=== PATIENT | female | born 1965 | race Two or more races ===

== ENCOUNTER 2019-07-14 13:13 | Emergency (ER) | payer OTHER ==
[2019-07-14] MEDS ORDERED: MORPHINE SULFATE 4 MG/ML SYRINGE IM STA (13:54)
--- NOTE | 2019-07-14 13:59 | ED ---
General Adult HPI - General Chief complaint: Fall Stated complaint: Ankle injury Time Seen by Provider: 07/14/19 13:36 Source: patient Mode of arrival: wheelchair Limitations: no limitations - History of Present Illness Initial comments: Dictation was produced using Verbling dictation software. please excuse any grammatical, word or spelling errors. Chief Complaint: 54-year-old female with right foot pain. History of Present Illness: Patient's 54-year-old female right foot pain. Just prior to this patient was standing on a washer dusting when she lost balance and fell off. Patient states she landed on her feet with stiffened legs.. Ended Endocet she had significant right foot pain. She reports that the pain is severe. Complains of paresthesias to all the toes. Denies any back pain. No hip pain and no knee pain. The ROS documented in this emergency department record has been reviewed and confirmed by me. Those systems with pertinent positive or negative responses have been documented in the HPI. All other systems are other negative and/or noncontributory. PHYSICAL EXAM: General Impression: Alert and oriented x3, acute distress secondary to pain HEENT: Normocephalic atraumatic, extra-ocular movements intact, pupils equal and reactive to light bilaterally, mucous membranes moist. Cardiovascular: Heart regular rate and rhythm, S1&S2 audible, no murmurs, rubs or gallops Chest: Lungs clear to auscultation bilaterally, no rhonchi, no wheeze, no rales Abdomen: Bowel sounds present, abdomen soft, non-tender, non-distended, no organomegaly Musculoskeletal: Pulses present and equal in all extremities, no peripheral edema Right foot: Intact DP and PT pulses, exquisite tenderness to palpation of the entire foot worse in the heel Motor: no focal deficits noted Neurological: CN II-XII grossly intact, no focal motor or sensory deficits noted Skin: Intact with no visualized rashes Psych: Normal affect and mood ED course: 54-year-old feel presents with right foot pain. Vital signs upon arrival shows heart rate of 1:15, rest of vital signs within acceptable limits. X-ray of the calcaneus was obtained showing nondisplaced comminuted calcaneus fracture. Discussed patient case Dr. Self who requests that CT scans be obtained for operative planning and that she be discharged and follow-up with Dr. Keen early next week. Bulky Mcdonough right ankle posterior mold splint was placed to the right lower extremity. CT is ordered. Patient tolerated splint placement. Patient will be discharged. She reports that she has crutches at home. Patient is told to be nonweightbearing to the right lower extremity. - Related Data Home Medications Medication Instructions Recorded Confirmed Albiglutide [Tanzeum] 30 mg SQ MO 04/21/17 04/25/17 Butalb/APAP/Caff 50-325-40Mg 1 tab PO DIRECTED PRN 04/21/17 04/25/17 [Fioricet 50-325-40] Glimepiride [Amaryl] 2 mg PO BID 04/21/17 04/25/17 Meloxicam 7.5 mg PO BID PRN 04/21/17 04/25/17 Oxybutynin Chloride 5 mg PO QAM 04/21/17 04/25/17 Simvastatin [Zocor] 20 mg PO HS 04/21/17 04/25/17 rOPINIRole HCL [Requip] 0.5 mg PO HS 04/21/17 04/25/17 Previous Rx's Medication Instructions Recorded HYDROcodone/APAP 5-325MG [[place] 1 tab PO Q6HR PRN 3 Days #12 tab 07/14/19 5-325] Allergies Allergy/AdvReac Type Severity Reaction Status Date / Time codeine Allergy Severe stopped Verified 04/21/17 15:19 breathing amoxicillin Allergy Swelling/hi Verified 04/21/17 15:19 ves aspirin Allergy Rash/Hives Verified 04/21/17 15:19 clarithromycin [From Biaxin] Allergy Rash/Hives/ Verified 04/21/17 15:19 itching erythromycin base Allergy Swelling/hi Verified 04/21/17 15:19 ves latex Allergy red skin Verified 04/21/17 15:33 and itching Penicillins Allergy Swelling/hi Verified 04/21/17 15:19 ves silk and nylon stitching Allergy skin buck Uncoded 04/21/17 15:34 Review of Systems ROS Statement: Those systems with pertinent positive or pertinent negative responses have been documented in the HPI. ROS Other: All systems not noted in ROS Statement are negative. Past Medical History Past Medical History: Diabetes Mellitus, Hyperlipidemia, Osteoarthritis (OA) Additional Past Medical History / Comment(s): migraines, EKG 'Showed stress"-not sure if CO, frequent vomiting after meals, IBS, frequent urination History of Any Multi-Drug Resistant Organisms: None Reported Past Surgical History: Section, Tonsillectomy Additional Past Surgical History / Comment(s): ganglion cyst removed from rt elbow Past Anesthesia/Blood Transfusion Reactions: Family History of Problems w/ Anesthesia, Motion Sickness Additional Past Anesthesia/Blood Transfusion Reaction / Comment(s): "daughter comes out violent" Past Psychological History: Anxiety, Panic Disorder Smoking Status: Former smoker Past Alcohol Use History: None Reported Past Drug Use History: None Reported - Past Family History Father Family Medical History: Cancer General Exam Limitations: no limitations Course Vital Signs 07/14/19 13:18 Temperature 97.8 F Pulse Rate 115 H Respiratory 20 Rate Blood Pressure 164/86 O2 Sat by Pulse 99 Oximetry Disposition Clinical Impression: Calcaneus fracture Disposition: HOME SELF-CARE Condition: Good Instructions (If sedation given, give patient instructions): Calcaneal Fracture (ED) Additional Instructions: pain prescription sent to preferred pharmacy for order picker Prescriptions: HYDROcodone/APAP 5-325MG [[place] 5-325] 1 tab PO Q6HR PRN 3 Days #12 tab PRN Reason: Severe Pain Is patient prescribed a controlled substance at d/c from ED?: Yes If prescribed controlled substance>3 days was MAPS reviewed?: Prescribed <3 Days Referrals: Montana Keen MD [Medical Doctor] - 1-2 days Time of Disposition: 15:00
--- NOTE | 2019-07-14 14:14 | XR ---
EXAMINATION TYPE: XR ankle complete RT DATE OF EXAM: 07/14/2019 COMPARISON: NONE HISTORY: Pain. Fall. TECHNIQUE: 3 views FINDINGS: There is comminuted fracture of the posterior calcaneus. Fracture line extends to the subta lar joint. There is large plantar and Achilles calcaneal spurring. Ankle mortise is anatomic. IMPRESSION: Nondisplaced comminuted calcaneus fracture.
--- NOTE | 2019-07-14 14:14 | XR ---
EXAMINATION TYPE: XR calcaneus 2V RT DATE OF EXAM: 07/14/2019 COMPARISON: NONE HISTORY: Pain TECHNIQUE: 2 views FINDINGS: There is nondisplaced comminuted calcaneus fracture. There is anatomic subtalar joint. Ther e is moderate plantar and Achilles calcaneal spurring. IMPRESSION: Comminuted calcaneus fracture.
[2019-07-14] MEDS ORDERED: HYDROmorphone 0.5 MG/0.5 ML SYRINGE IVP STA (15:09)
--- NOTE | 2019-07-14 15:17 | CT ---
EXAMINATION TYPE: CT lower extremity RT wo con DATE OF EXAM: 07/14/2019 COMPARISON: None HISTORY: pt fall, injury RT foot CT DLP: 280.6 mGycm Automated exposure control for dose reduction was used. Multiple axial sections were obtained from the distal tibia to the bottom of the foot without contras t. There is comminuted nondisplaced fracture of the posterior calcaneus. Subtalar joint is anatomic. Ank le mortise is anatomic. Fragments are displaced up to 5 mm. Fracture line extends to the subtalar haily nt. There is plantar and Achilles calcaneal spur formation. IMPRESSION: Comminuted fracture of the posterior calcaneus with mild displacement.
[2019-07-14 15:26] VITALS: BP 155/84; PULSE 98; RESP 18; TEMP 98.9
== END 2019-07-14 15:24 | disposition home or self-care (01) ==
LOC: EC 13:13
DX: S92.001A Unspecified fracture of right calcaneus, initial encounter for closed fracture (principal); E11.9 Type 2 diabetes mellitus without complications; E78.5 Hyperlipidemia, unspecified; M19.90 Unspecified osteoarthritis, unspecified site; Z87.891 Personal history of nicotine dependence; Z88.0 Allergy status to penicillin; Z88.1 Allergy status to other antibiotic agents; Z88.5 Allergy status to narcotic agent; Z88.6 Allergy status to analgesic agent; Z91.040 Latex allergy status; Z91.048 Other nonmedicinal substance allergy status; Z79.84 Long term (current) use of oral hypoglycemic drugs; Z79.899 Other long term (current) drug therapy; Z87.448 Personal history of other diseases of urinary system; W17.89XA Other fall from one level to another, initial encounter; Y93.89 Activity, other specified; Y92.009 Unspecified place in unspecified non-institutional (private) residence as the place of occurrence of the external cause
CPT/HCPCS: 73610; 73650; 73700; 99284; 29515; 96374; 96372; J2270; J1170

== ENCOUNTER 2019-07-19 09:09 | Day surgery (SDC) | payer OTHER ==
[2019-07-16 15:36] VITALS: BMI 27.6
[~2019-07-19 09:09] MED LIST: CLINDAMYCIN 900 MG in DEXTROSE 5% IN WATER 50 ML IVPB ONE; LACTATED RINGERS 1,000 ML IV SCH; LIDOCAINE 1% (10MG/ML) FOR IV START INTRADERMA PRN; ONDANSETRON 4 MG/2 ML VIAL IVP ONE; fentaNYL (PF) 50 MCG/ML 2 ML AMP IV PRN
[2019-07-19 11:23] LABS: Glucose,Whole Blood 161 mg/dL (75-99)
[2019-07-19] MEDS ORDERED: MIDAZOLAM 2 MG/2 ML VIAL IV ONE (11:35)
[2019-07-19] MEDS ORDERED: SCOPOLAMINE 1.5MG/72HR PATCH TRANSDERM ONE (11:47)
[2019-07-19] MEDS ORDERED: LIDOCAINE 1% INJ 10MG/ML (20 ML MDV) ONE (13:47)
[2019-07-19] MEDS ORDERED: ROPIVACAINE 5 MG/ML 30 ML VIAL ONE (13:47)
[2019-07-19] MEDS ORDERED: fentaNYL (PF) 50 MCG/ML 2 ML AMP ONE (13:47)
[2019-07-19] MEDS ORDERED: MIDAZOLAM 2 MG/2 ML VIAL ONE (13:47)
[2019-07-19] MEDS ORDERED: PROPOFOL 10 MG/ML 20 ML VIAL IV ONE (13:47)
[2019-07-19] MEDS ORDERED: DEXAMETHASONE SOD PHOSPHATE 4 MG/ML 1 ML VIAL ONE (13:47)
[2019-07-19] MEDS ORDERED: SUCCINYLCHOLINE CHLORIDE 100 MG/5 ML SYR IV ONE (13:47)
[2019-07-19] MEDS ORDERED: LACTATED RINGERS 1,000 ML IV ONE ×2 (14:48→17:42)
--- NOTE | 2019-07-19 14:55 | P.OP ---
Date of Procedure: 07/19/19 Preoperative Diagnosis: 1. Displaced right tongue-type calcaneus fracture 2. Type 2 diabetes Postoperative Diagnosis: Same Procedure(s) Performed: 1. Open reduction internal fixation right calcaneus fracture 2. Application of short leg splint, right leg Anesthesia: yang VAUGHAN Surgeon: Montana Keen Funding Analyst #1: Delfino Aguirre Estimated Blood Loss (ml): 5 IV fluids (ml): 800 Pathology: none sent Condition: stable Disposition: PACU Indications for Procedure: The patient is very pleasant 54 old female with a medical history significant for type 2 diabetes who sustained an isolated injury to her right leg after a fall. She was seen in the emergency department where x-rays and computed tomography scan showed a displaced tongue-type calcaneus fracture. She was referred to my office. A mallet the patient earlier this week to discuss her x- rays. Her x-rays and CT again showed a displaced tongue-type calcaneus fracture. My recommendation was to perform percutaneous fixation to allow early range of motion. We discussed potential risks and competitions of surgery including but not limited to risk of anesthesia, infection, damage to local blood vessels or nerves, delayed wound healing, nonunion, malunion, loss of fixation, symptomatically hardware, posttraumatic arthritis, DVT, PE, other medical complications, and inability to regain preinjury level of function and possibly loss of life or limb. The patient voiced understanding of all these the most common types of complications other less common competitions are possible. Description of Procedure: The patient was identified in preoperative holding and the correct right leg was marked with my initials. I reviewed the consent form with the patient and her daughters. All the questions were answered. The patient was given a block by anesthesia. She was then brought back to the operating room. She was positioned on the or table where general anesthetic and preoperative antibiotics were given. A tourniquet was applied the proximal aspect of the right leg. The patient was then placed in lateral decubitus position with the unaffected left side down and the right side up. She was secured to the table with a beanbag. Egg foam was placed under the down leg over the fibular head to prevent pressure over the common peroneal nerve. A bump of towels was placed under the right leg after the legs been scissored. The right leg was then prepped and draped in the standard sterile fashion. Prior to starting surgery timeout was performed identifying the correct patient, operative extremity, and procedure. The patient's leg was then elevated, examined was made with an Esmarch bandage, the tourniquet was inflated to 250 mm a marker. I began by making a stab incision directly over the posterior tuberosity tongue fragment. A 2.5 mm drill bit was used to create a pilot instructor hole and a 5 mm Schanz pin was placed by hand into the tongue fragment. A gentle plantar flexion force was applied and the fracture anatomically reduced. I then proceeded to place 2 cannulated 5.5 mm partially threaded screws across the fracture both generating excellent compression. A final longitudinal screws placed from the tip of the posterior tuberosity into the anterior process of the calcaneus. Final fluoroscopic images were taken including a lateral view of the heel, and axial view of the heel, and AP view of the foot. The fracture appeared to be reduced and the hardware was all within the calcaneus. The wounds were thoroughly irrigated and closed with 3-0 nylon. Sterile dressing was applied. The patient was then placed in the supine position and a well-padded bulky Joneswith the ankle in neutral. The patient was then awoken from her anesthetic, transferred from the or table to a gurney, and brought to recovery entire procedure well. Delfino Aguirre PA-C was required as a skilled social service assistant for patient positioning, surgical exposure, retraction, placement of hardware, closure of wound, and apposition of splint. Plan: The patient is going to be admitted overnight for pain control, medical consultation for diabetes management, gait training, and discharge planning. She is to remain strictly nonweightbearing on her operative extremity.
[2019-07-19] MEDS ORDERED: HYDROmorphone 0.5 MG/0.5 ML SYRINGE IVP PRN ×2 (15:08)
[2019-07-19] MEDS ORDERED: hydrOXYzine PAMOATE 25 MG CAP PO PRN (15:08)
[2019-07-19] MEDS ORDERED: SENNOSIDES-DOCUSATE SODIUM 1 EACH TAB PO PRN (15:08)
[2019-07-19] MEDS ORDERED: HYDROcodone/APAP 5-325MG 1 EACH TAB PO PRN (15:08)
[2019-07-19] MEDS ORDERED: ONDANSETRON 4 MG/2 ML VIAL IVP PRN (15:08)
--- NOTE | 2019-07-19 15:09 | FL ---
EXAMINATION TYPE: FL guidance operating room, XR calcaneus 2V RT DATE OF EXAM: 07/19/2019 CLINICAL HISTORY: Fluoroscopic documentation during open reduction internal fixation of the right hitesh caneus. TECHNIQUE: Fluoroscopy. COMPARISON: None. FINDINGS: Fluoroscopic guidance was provided during procedure performed by Dr. Keen. A total of 1 minute and 47 seconds of fluoroscopic time was utilized during the procedure and 7 spot images were acquired. IMPRESSION: As Above.
[2019-07-19] MEDS ORDERED: LACTATED RINGERS 1,000 ML IV SCH (15:15)
[2019-07-19 16:25] LABS: Glucose,Whole Blood 203 mg/dL (75-99)
[2019-07-19] MEDS ORDERED: INSULIN ASPART (NovoLOG) 100 UNIT/ML VIAL SQ ONE (17:22)
[2019-07-19 18:44] LABS: Basophils % (A) 0 %; Eosinophils % (A) 0 %; HCT 39.7 % (34.0-46.0); HGB 12.4 gm/dL (11.4-16.0); Lymphocytes # (A) 0.9 k/uL (1.0-4.8); Lymphocytes % (A) 11 %; MCH 27.4 pg (25.0-35.0); MCHC 31.3 g/dL (31.0-37.0); MCV 87.6 fL (80.0-100.0); Mean Platelet Volume 7.4; Monocytes # (A) 0.1 k/uL (0-1.0); Monocytes % (A) 2 %; Neutrophils # (A) 6.6 k/uL (1.3-7.7); Neutrophils % (A) 86 %; Platelet Count 381 k/uL (150-450); RBC 4.53 m/uL (3.80-5.40); WBC 7.7 k/uL (3.8-10.6)
[2019-07-19] MEDS: HYDROmorphone 0.5 MG/0.5 ML SYRINGE IVP PRN (19:18)
[2019-07-19 20:00] LABS: Glucose,Whole Blood 283 mg/dL (75-99)
[2019-07-19] MEDS: INSULIN ASPART (NovoLOG) 100 UNIT/ML VIAL SQ SCH (23:11)
[2019-07-19] MEDS: CLINDAMYCIN 900 MG in DEXTROSE 5% IN WATER 50 ML IVPB SCH ×2 (23:11)
[2019-07-19] MEDS ORDERED: INSULIN DETEMIR (LEVEMIR) 100 UNIT/ML SYR SQ SCH (23:15)
--- NOTE | 2019-07-19 23:16 | P.CONS ---
History of Present Illness - Reason for Consult Consult date: 07/19/19 - History of Present Illness Patient is a 54-year-old female with a PMH of type 2 diabetes mellitus, anxiety, migraine headaches, and restless leg syndrome who was admitted for scheduled open reduction internal fixation of her right calcaneus fracture. The patient had suffered a fall on 07/14/2019 at which time she presented to the ED and was diagnosed with the fracture when the computed tomography scan of her right foot revealed a comminuted fracture of the posterior calcaneus with mild displacement. The patient had a brace put on and was sent home and advised to be nonweightbearing on the right foot and use crutches. The patient underwent the procedure uneventfully earlier today. She reports continued pain, at a 4 out of 10 at the time of interview at the site of the surgery. She otherwise denied any additional complaints and was in good spirits. She denied chest pain, shortness of breath, nausea, vomiting or fever, chills, abdominal pain. Review of Systems Pertinent positives and negatives as discussed in HPI, a complete review of systems was performed and all other systems are negative. Past Medical History Past Medical History: Diabetes Mellitus, Myocardial Infarction (AL), Osteoarthritis (OA) Additional Past Medical History / Comment(s): current fx rt heel in boot, migraines, frequent urination, restless leg, Last Myocardial Infarction Date:: unknown silent History of Any Multi-Drug Resistant Organisms: None Reported Past Surgical History: Section, Tonsillectomy Additional Past Surgical History / Comment(s): ganglion cyst removed from rt elbow Past Anesthesia/Blood Transfusion Reactions: No Reported Reaction Additional Past Anesthesia/Blood Transfusion Reaction / Comm: "daughter comes out violent" Past Psychological History: Anxiety Smoking Status: Former smoker Past Alcohol Use History: None Reported Additional Past Alcohol Use History / Comment(s): quit smoking 2015, smoked 2ppd, started smoking age 14 Past Drug Use History: None Reported - Past Family History Father Family Medical History: Cancer Medications and Allergies Home Medications Medication Instructions Recorded Confirmed Type Butalb/APAP/Caff 50-325-40Mg 1 tab PO DIRECTED PRN 04/21/17 07/19/19 History [Fioricet 50-325-40] Oxybutynin Chloride 5 mg PO QAM 04/21/17 07/19/19 History rOPINIRole HCL [Requip] 0.5 mg PO HS 04/21/17 07/19/19 History HYDROcodone/APAP 10-325MG [[place] 1 tab PO Q6HR PRN 07/16/19 07/19/19 History 10-325] Insulin Glargine [Lantus] 40 unit SQ HS 07/16/19 07/16/19 History Insulin Lispro [Admelog] 20 - 25 units SQ DAILY 07/16/19 07/19/19 History Loratadine [Claritin] 10 mg PO DAILY 07/16/19 07/19/19 History Ondansetron [Zofran] 4 mg PO Q8HR PRN 07/16/19 07/19/19 History busPIRone HCL 15 mg PO BID 07/16/19 07/19/19 History sitaGLIPtin [Januvia] 100 mg PO DAILY 07/16/19 07/19/19 History Liraglutide [Victoza 2-[place]] 1.2 mg SQ DAILY 07/19/19 07/19/19 History Allergies Allergy/AdvReac Type Severity Reaction Status Date / Time codeine Allergy Severe Itching Verified 07/19/19 10:41 amoxicillin Allergy Swelling/hi Verified 07/19/19 10:41 ves aspirin Allergy Rash/Hives Verified 07/19/19 10:41 clarithromycin [From Biaxin] Allergy Rash/Hives/ Verified 07/19/19 10:41 itching erythromycin base Allergy Swelling/hi Verified 07/19/19 10:41 ves latex Allergy red skin Verified 07/19/19 10:41 and itching Penicillins Allergy Swelling/hi Verified 07/19/19 10:41 ves silk and nylon stitching Allergy Swelling Uncoded 07/19/19 10:41 Physical Exam Vitals: Vital Signs Temp Pulse Resp BP Pulse Ox 07/19/19 21:01 98 F 99 16 151/84 97 07/19/19 17:36 98 18 141/64 98 07/19/19 17:15 98 16 160/84 95 07/19/19 16:45 96 18 158/92 96 07/19/19 16:15 94 16 162/91 97 07/19/19 15:45 82 16 160/88 93 L 07/19/19 15:20 94 16 107/68 92 L 07/19/19 15:08 97.4 F L 60 14 96/62 91 L 07/19/19 11:46 95 97 07/19/19 10:51 97.4 F L 74 16 141/74 96 Intake and Output 07/19/19 07/19/19 07/20/19 14:59 22:59 06:59 Intake Total 1156 1050 Output Total 5 800 Balance 1151 250 Intake: IV 1156 750 Oral 300 Output: Urine 800 Estimated Blood Loss 5 Other: # Voids 3 General: non toxic, no distress, appears at stated age, overweight female Derm: no unusual rashes/lesions no unusual ecchymoses, warm, dry Head: atraumatic, normocephalic, symmetric Eyes: EOMI, no lid lag, anicteric sclera, pupils equal round reactive to light ENT: Nose and ears atraumatic, no thrush, no pharyngeal erythema Neck: No thyromegaly, no cervical lymphadenopathy, trachea midline, supple Mouth: no lip lesion, mucus membranes moist Cardiovascular: S1S2 reg, no murmur, positive posterior tibial pulse bilateral, no edema, capillary refill less than 2 seconds Lungs: CTA bilateral, no rhonchi, no rales , no accessory muscle use Abdominal: soft, nontender to palpation, no guarding, no appreciable organomegaly, normal bowel sounds Ext: Right lower extremity cast with James bandage in place, clean and dry, no gross muscle atrophy, muscle strength 5 out of 5 in all extremities except right lower extremity, no contractures, Neuro: CN II-XI grossly intact, light touch intact all 4 extremities, finger to nose within normal limits, Psych: Alert, oriented, appropriate affect Results CBC & Chem 7: 07/19/19 18:11 Labs: Abnormal Lab Results - Last 24 Hours (Table) 07/19/19 07/19/19 07/19/19 Range/Units 11:11 16:23 18:11 Lymphocytes # 0.9 L (1.0-4.8) k/uL POC Glucose (mg/dL) 161 H 203 H (75-99) mg/dL 07/19/19 Range/Units 19:58 Lymphocytes # (1.0-4.8) k/uL POC Glucose (mg/dL) 283 H (75-99) mg/dL Assessment and Plan Plan: Type 2 diabetes mellitus with hyperglycemia -Lispro insulin sliding scale and blood glucose monitoring -Levemir 30 units daily at bedtime (patient takes Lantus 40 units daily at bedtime nightly) -Hold oral hypoglycemics Restless leg syndrome -Continue with ropinirole Long-standing Urinary incontinence -Continue with home med oxybutynin Right ankle open reduction internal fixation -Management including pain control as per surgery DVT prophylaxis -As per surgery, currently on Lovenox
[2019-07-19] MEDS: HYDROcodone/APAP 5-325MG 1 EACH TAB PO PRN (23:19)
[2019-07-20] MEDS: HYDROmorphone 0.5 MG/0.5 ML SYRINGE IVP PRN ×2 (02:43→13:55)
[2019-07-20 07:02] LABS: Glucose,Whole Blood 142 mg/dL (75-99)
--- NOTE | 2019-07-20 08:15 | P.ANPRN ---
Procedure Note - Anesthesia - Nerve Block Performed Right Popliteal Single Time Out Performed: Yes Date of Procedure: 07/19/19 Procedure Start Time: 13:47 Procedure Stop Time: 13:51 Location of Patient: PreOp Indication: Acute Post-Operative Pain, Requested by Surgeon Sedation Type: Sedate with meaningful contact maintained Preparation: Sterile Prep Position: Left Lateral Needle Types: Pajunk Needle Gauge: 21 Ultrasound used to visualize needle placement: Yes Ultrasound used to observe medication spread: Yes Blood Aspirated: No Pain Paresthesia on Injection Noted: No Resistance on Injection: Normal Image Stored and Saved: Yes Events: Uneventful and Well Tolerated (ropi .5% 20cc plus dexamethasone 4mg)
[2019-07-20] MEDS: INSULIN ASPART (NovoLOG) 100 UNIT/ML VIAL SQ SCH ×3 (08:48→17:25)
[2019-07-20] MEDS: HYDROcodone/APAP 5-325MG 1 EACH TAB PO PRN (08:54)
[2019-07-20] MEDS: CLINDAMYCIN 900 MG in DEXTROSE 5% IN WATER 50 ML IVPB SCH ×2 (08:57)
[2019-07-20] MEDS ORDERED: OXYBUTYNIN CHLORIDE 5 MG TAB PO SCH (09:00)
[2019-07-20] MEDS ORDERED: busPIRone HCl 5 MG TAB PO SCH (09:00)
[2019-07-20] MEDS ORDERED: ENOXAPARIN 40 MG/0.4 ML SYRINGE SQ SCH (09:00)
[2019-07-20 11:56] LABS: Glucose,Whole Blood 186 mg/dL (75-99)
--- NOTE | 2019-07-20 12:47 | P.DS ---
Providers Date of admission: 07/20/19 04:11 Expected date of discharge: 07/20/19 Attending physician: Montana Keen Consults: 07/19/19 18:01 Consult Physician Routine Consulting Provider: Cherri Jay Consult Reason/Comments: medical management Do you want consulting provider notified?: Yes Primary care physician: [facility] Course: This patient is a 54-year-old female who sustained a fall resulting in a right displaced tongue-type calcaneus fracture. The patient was originally evaluated in the emergency department, where x-ray and a CT scan were obtained. The patient was referred to Dr. Keen, who recommended operative fixation. Patient underwent an open reduction and internal fixation of the right calcaneus fracture on 07/19/[address] Keen. The procedure is performed without complication or sequelae. The patient is doing well postoperatively. Vital signs are stable on postop day #1. The patient is examined bedside this morning. She states she is feeling very well. She states the pain in her right foot is well controlled. She is tolerating her diet well. She denies chest pain, shortness of breath, nausea, vomiting, fevers, chills. She would like to return home on discharge. Vital signs stable. On examination, the patient is sitting up in bed in no acute distress. Patient is alert and orientated x3. On inspection of the right lower extremity, there is a bulky Mcdonough splint in place. Splint is clean, dry, intact. Patient is able to wiggle her toes without issue. No pain with PROM of the toes. The toes are warm and well-perfused with brisk capillary refill. The patient is discharged to home pending medical clearance today. Please refer to the med rec for accurate list of medications. Patient Condition at Discharge: Fair Plan - Discharge Summary Discharge Rx Participant: Yes New Discharge Prescriptions: New Docusate [Colace] 100 mg PO BID #60 capsule HYDROcodone/APAP 10-325MG [[place] 10-325] 1 tab PO Q6HR PRN 7 Days #28 tab PRN Reason: Pain No Action Butalb/APAP/Caff 50-325-40Mg [Fioricet 50-325-40] 1 tab PO DIRECTED PRN PRN Reason: migraines rOPINIRole HCL [Requip] 0.5 mg PO HS Oxybutynin Chloride 5 mg PO QAM Ondansetron [Zofran] 4 mg PO Q8HR PRN PRN Reason: Nausea HYDROcodone/APAP 10-325MG [[place] 10-325] 1 tab PO Q6HR PRN PRN Reason: Pain busPIRone HCL 15 mg PO BID sitaGLIPtin [Januvia] 100 mg PO DAILY Insulin Glargine [Lantus] 40 unit SQ HS Loratadine [Claritin] 10 mg PO DAILY Insulin Lispro [Admelog] 20 - 25 units SQ DAILY Liraglutide [Victoza 2-[place]] 1.2 mg SQ DAILY Discharge Medication List Butalb/APAP/Caff 50-325-40Mg [Fioricet 50-325-40] 1 tab PO DIRECTED PRN 04/21/17 [History] Oxybutynin Chloride 5 mg PO QAM 04/21/17 [History] rOPINIRole HCL [Requip] 0.5 mg PO HS 04/21/17 [History] HYDROcodone/APAP 10-325MG [[place] 10-325] 1 tab PO Q6HR PRN 07/16/19 [History] Insulin Glargine [Lantus] 40 unit SQ HS 07/16/19 [History] Insulin Lispro [Admelog] 20 - 25 units SQ DAILY 07/16/19 [History] Loratadine [Claritin] 10 mg PO DAILY 07/16/19 [History] Ondansetron [Zofran] 4 mg PO Q8HR PRN 07/16/19 [History] busPIRone HCL 15 mg PO BID 07/16/19 [History] sitaGLIPtin [Januvia] 100 mg PO DAILY 07/16/19 [History] Liraglutide [[place]ictoza 2-[place]] 1.2 mg SQ DAILY 07/19/19 [History] Docusate [Colace] 100 mg PO BID #60 capsule 07/20/19 [Rx] HYDROcodone/APAP 10-325MG [[place] 10-325] 1 tab PO Q6HR PRN 7 Days #28 tab 07/20/19 [Rx] Follow up Appointment(s)/Referral(s): Montana Keen MD [Medical Doctor] - 08/01/19 8:00 am Patient Instructions/Handouts: *Surgery [facility] - Scopalamine Patch Instructions Activity/Diet/Wound Care/Special Instructions: -Strict non-weight bearing on your operative leg. Do not remove your splint; Keep splint clean, dry, and intact -Use crutches, knee scooter, or a walker to ambulate after surgery. -Elevate and ice operative leg to help reduce swelling and control pain. -Take pain medications as prescribed. Take Colace as a stool softener. Early mobilization for DVT prophylaxis. -Follow-up appointment with Dr. Keen in the office in 2 weeks. -Call the office with any questions or concerns, Discharge Disposition: HOME SELF-CARE
[2019-07-20 15:25] VITALS: BP 135/81; PULSE 95; RESP 18; TEMP 97.9
--- NOTE | 2019-07-20 15:48 | P.PN ---
Subjective Progress Note Date: 07/20/19 Principal diagnosis: follow up medical management post op patient seen and examined doing well no new complaints. Denies chest pain trouble breathing Pain is well tolerated Objective - Vital Signs Vital signs: Vital Signs Temp 97.9 F 07/20/19 15:00 Pulse 95 07/20/19 15:00 Resp 18 07/20/19 15:00 BP 135/81 07/20/19 15:00 Pulse Ox 93 L 07/20/19 15:00 Intake & Output 07/19/19 07/20/19 07/20/19 18:59 06:59 18:59 Intake Total 2206 640 50 Output Total 805 Balance 1401 640 50 Weight 63.503 kg Intake: IV 1906 Intake, IV Titration 50 50 Amount Clindamycin 900 mg In 50 50 Dextrose 5% in Water 50 ml @ 50 mls/hr IVPB Q[facility] Rx#:[id number] Oral 300 590 Output: Urine 800 Estimated Blood Loss 5 Other: Voiding Method Toilet Toilet Bedpan Bedpan # Voids 1 1 - Exam Constitutional: vital signs stable, Not in acute distress, pleasant, conversant Lungs: Clear to auscultation bilaterally, clear to percussion, normal respiratory effort Cardiovascular: Regular rate and rhythm, no murmurs, no gallops, no rubs, no peripheral edema Extremities: Right foot capillary refill is immediate patient moving her toes muscle tenderness with active motion of her toes Psych: Alert, oriented to place, person and time, appropriate affect, intact judgment - Labs CBC & Chem 7: 07/19/19 18:11 Labs: Abnormal Lab Results - Last 24 Hours (Table) 07/19/19 07/19/19 07/19/19 Range/Units 16:23 18:11 19:58 Lymphocytes # 0.9 L (1.0-4.8) k/uL POC Glucose (mg/dL) 203 H 283 H (75-99) mg/dL 07/20/19 07/20/19 Range/Units 07:00 11:54 Lymphocytes # (1.0-4.8) k/uL POC Glucose (mg/dL) 142 H 186 H (75-99) mg/dL Assessment and Plan Assessment: 54-year-old female with type 2 diabetes mellitus, anxiety, migraine headaches, and restless leg syndrome who was admitted for scheduled open reduction internal fixation of her right calcaneus fracture. Patient tolerated procedure well Plan: Type 2 diabetes mellitus with hyperglycemia -Lispro insulin sliding scale and blood glucose monitoring -Levemir 30 units daily at bedtime (patient takes Lantus 40 units daily at bedtime nightly) -Hold oral hypoglycemics, resume upon discharge Restless leg syndrome -Continue with ropinirole Long-standing Urinary incontinence -Continue with home med oxybutynin Right ankle open reduction internal fixation, postoperative day 1 -Management including pain control as per surgery DVT prophylaxis -As per surgery, currently on Lovenox Stable from internal medicine standpoint for discharge
[2019-07-20 17:17] LABS: Glucose,Whole Blood 224 mg/dL (75-99)
== END 2019-07-20 18:40 | disposition home or self-care (01) ==
LOC: OR 09:09 → 4SSUR 15:45 → OR 07-20 03:41 → 4SSUR 07-20 04:11
PROVIDERS: ADMIT Orthopaedic Surgery; ATTEND Orthopaedic Surgery
DX: S92.001A Unspecified fracture of right calcaneus, initial encounter for closed fracture (principal); W17.89XA Other fall from one level to another, initial encounter; I10 Essential (primary) hypertension; E11.9 Type 2 diabetes mellitus without complications; I25.2 Old myocardial infarction; G43.909 Migraine, unspecified, not intractable, without status migrainosus; G25.81 Restless legs syndrome; M19.90 Unspecified osteoarthritis, unspecified site; R35.0 Frequency of micturition; Z87.891 Personal history of nicotine dependence; Z80.9 Family history of malignant neoplasm, unspecified; F41.9 Anxiety disorder, unspecified; F32.9 Major depressive disorder, single episode, unspecified; Z79.899 Other long term (current) drug therapy; Z79.1 Long term (current) use of non-steroidal anti-inflammatories (NSAID); Z79.4 Long term (current) use of insulin; Z79.891 Long term (current) use of opiate analgesic; Z88.0 Allergy status to penicillin; Z88.6 Allergy status to analgesic agent; Z88.1 Allergy status to other antibiotic agents; Z88.5 Allergy status to narcotic agent; Z91.040 Latex allergy status; Z91.09 Other allergy status, other than to drugs and biological substances
CPT/HCPCS: 28415; 97161; 64445; 76942; 85025; 82306; 73650; G0378; C1713; J2250; J1100; J2405 ×2; J2001; J1650; J3010; J2795; J0330; J2704; J1170 ×2